=== PATIENT | female | born 1970 | race Two or more races ===

== ENCOUNTER 2019-04-19 06:50 | Outpatient (CLI) | payer OTHER | END 2019-04-19 06:57 | disposition home or self-care (01) | LOC: LAB 06:50 | DX: K21.9 Gastro-esophageal reflux disease without esophagitis (principal); Z00.00 Encounter for general adult medical examination without abnormal findings; Z13.6 Encounter for screening for cardiovascular disorders; L84 Corns and callosities; M79.675 Pain in left toe(s) ==

== ENCOUNTER 2019-04-19 07:33 | Outpatient (CLI) | payer OTHER | END 2019-04-19 07:48 | disposition home or self-care (01) | LOC: RAD 07:33 | DX: M20.42 Other hammer toe(s) (acquired), left foot (principal) ==

== ENCOUNTER 2019-05-10 14:31 | Outpatient (CLI) | payer OTHER | END 2019-05-10 14:35 | disposition home or self-care (01) | LOC: EKG 14:31 | DX: Z13.6 Encounter for screening for cardiovascular disorders (principal) ==

== ENCOUNTER → 2019-05-11 | Outpatient (CLI) | payer OTHER | END | disposition home or self-care (01) | LOC: MAMO-SONO 07:33 | DX: Z12.31 Encounter for screening mammogram for malignant neoplasm of breast (principal); Z87.898 Personal history of other specified conditions; Z12.39 Encounter for other screening for malignant neoplasm of breast ==

== ENCOUNTER → 2019-05-18 | Outpatient (CLI) | payer OTHER | END | disposition home or self-care (01) | LOC: SONOGRAMA 07:19 | DX: E04.1 Nontoxic single thyroid nodule (principal); E04.8 Other specified nontoxic goiter; R13.19 Other dysphagia ==

== ENCOUNTER 2019-07-13 08:33 | Outpatient (CLI) | payer OTHER | END 2019-07-13 08:38 | disposition home or self-care (01) | LOC: SONOGRAMA 08:33 | DX: E04.1 Nontoxic single thyroid nodule (principal) ==

== ENCOUNTER 2019-08-18 08:42 | Outpatient (CLI) | payer OTHER | END 2019-08-18 08:50 | disposition home or self-care (01) | LOC: LAB 08:42 | DX: J11.1 Influenza due to unidentified influenza virus with other respiratory manifestations (principal); J06.9 Acute upper respiratory infection, unspecified ==

== ENCOUNTER 2019-09-12 13:11 | Outpatient (CLI) | payer OTHER | END 2019-09-12 13:18 | disposition home or self-care (01) | LOC: RAD 13:11 | DX: T15.12XA Foreign body in conjunctival sac, left eye, initial encounter (principal) ==

== ENCOUNTER 2019-12-27 06:44 | Outpatient (CLI) | payer OTHER | END 2019-12-27 06:50 | disposition home or self-care (01) | LOC: LAB 06:44 | PROVIDERS: ATTEND General Practice | DX: R10.13 Epigastric pain (principal) ==

== ENCOUNTER → 2019-12-29 | Outpatient (CLI) | payer OTHER | END | disposition home or self-care (01) | LOC: MAMO-SONO 06:42 | PROVIDERS: ATTEND General Practice | DX: R10.13 Epigastric pain (principal) ==

== ENCOUNTER → 2020-01-02 | Outpatient (CLI) | payer OTHER | END | disposition home or self-care (01) | LOC: TOM 06:46 | PROVIDERS: ATTEND General Practice | DX: R93.2 Abnormal findings on diagnostic imaging of liver and biliary tract (principal) ==

== ENCOUNTER 2020-06-17 05:53 | Day surgery (SDC) | payer OTHER | END 2020-06-17 11:00 | disposition home or self-care (01) | LOC: AMB-ENDOS 05:53 | PROVIDERS: ATTEND Surgery | DX: K62.89 Other specified diseases of anus and rectum (principal); Z12.11 Encounter for screening for malignant neoplasm of colon; Z20.828 Contact with and (suspected) exposure to other viral communicable diseases ==

== ENCOUNTER 2020-07-16 11:11 | Outpatient (CLI) | payer OTHER | END 2020-07-16 14:57 | disposition home or self-care (01) | LOC: LAB 11:11 | PROVIDERS: ATTEND Internal Medicine Gastroenterology | DX: R10.13 Epigastric pain (principal); Z87.11 Personal history of peptic ulcer disease; Z12.11 Encounter for screening for malignant neoplasm of colon; D13.4 Benign neoplasm of liver ==

== ENCOUNTER 2020-07-16 11:46 | Outpatient (CLI) | payer OTHER | END 2020-07-16 11:52 | disposition home or self-care (01) | LOC: SONOGRAMA 11:46 | PROVIDERS: ATTEND Obstetrics & Gynecology Gynecology | DX: D18.09 Hemangioma of other sites (principal); K76.89 Other specified diseases of liver; R93.3 Abnormal findings on diagnostic imaging of other parts of digestive tract; R10.13 Epigastric pain ==

== ENCOUNTER 2021-03-20 14:35 | Outpatient (CLI) | payer OTHER | END 2021-03-20 14:41 | disposition home or self-care (01) | LOC: MAMO-SONO 14:35 | PROVIDERS: ATTEND Radiology Diagnostic Radiology | DX: N64.89 Other specified disorders of breast (principal); N63.0 Unspecified lump in unspecified breast ==

== ENCOUNTER 2021-07-07 05:39 | Day surgery (SDC) | payer OTHER ==
[2021-07-07] MEDS ORDERED: ULTRAM50 MG PO (11:57)
[2021-07-07] MEDS ORDERED: PROTONIX40 MG PO (11:58)
== END 2021-07-07 13:00 | disposition home or self-care (01) ==
LOC: CIR.AMB 05:39
PROVIDERS: ATTEND Surgery
DX: K80.10 Calculus of gallbladder with chronic cholecystitis without obstruction (principal)

== ENCOUNTER 2022-08-03 14:05 | Outpatient (CLI) | payer OTHER ==
[~2022-08-03 14:05] MED LIST: PROTONIX40 MG PO; ULTRAM50 MG PO
== END 2022-08-03 14:12 | disposition home or self-care (01) ==
LOC: LAB 14:05
DX: Z20.822 Contact with and (suspected) exposure to COVID-19 (principal); R50.9 Fever, unspecified; J11.1 Influenza due to unidentified influenza virus with other respiratory manifestations

== ENCOUNTER 2022-08-26 07:02 | Outpatient (CLI) | payer OTHER | END 2022-08-26 07:10 | disposition home or self-care (01) | LOC: RAD 07:02 | PROVIDERS: ATTEND Internal Medicine | DX: M79.652 Pain in left thigh (principal); M25.552 Pain in left hip; S49.92XA Unspecified injury of left shoulder and upper arm, initial encounter ==

== ENCOUNTER 2022-10-05 06:23 | Outpatient (CLI) | payer OTHER | END 2022-10-05 06:24 | disposition home or self-care (01) | LOC: LAB 06:23 | PROVIDERS: ATTEND Obstetrics & Gynecology | DX: D64.9 Anemia, unspecified (principal); E03.8 Other specified hypothyroidism; N95.1 Menopausal and female climacteric states; I10 Essential (primary) hypertension; C51.9 Malignant neoplasm of vulva, unspecified; N30.00 Acute cystitis without hematuria; E83.51 Hypocalcemia; A64 Unspecified sexually transmitted disease; N39.0 Urinary tract infection, site not specified; R97.8 Other abnormal tumor markers; R79.89 Other specified abnormal findings of blood chemistry; E55.9 Vitamin D deficiency, unspecified; A60.9 Anogenital herpesviral infection, unspecified; Z12.11 Encounter for screening for malignant neoplasm of colon ==

== ENCOUNTER 2022-10-06 13:06 | Outpatient (CLI) | payer OTHER | END 2022-10-06 13:13 | disposition home or self-care (01) | LOC: MAMO-SONO 13:06 | PROVIDERS: ATTEND Obstetrics & Gynecology | DX: Z12.31 Encounter for screening mammogram for malignant neoplasm of breast (principal); N60.11 Diffuse cystic mastopathy of right breast; N60.12 Diffuse cystic mastopathy of left breast; E04.8 Other specified nontoxic goiter; E03.9 Hypothyroidism, unspecified ==

== ENCOUNTER 2023-01-18 07:27 | Outpatient (CLI) | payer OTHER | END 2023-01-18 07:34 | disposition home or self-care (01) | LOC: LAB 07:27 | PROVIDERS: ATTEND Family Medicine | DX: E11.9 Type 2 diabetes mellitus without complications (principal); N18.1 Chronic kidney disease, stage 1; N39.0 Urinary tract infection, site not specified; E55.9 Vitamin D deficiency, unspecified; Z12.11 Encounter for screening for malignant neoplasm of colon; E03.9 Hypothyroidism, unspecified; D64.9 Anemia, unspecified; N18.9 Chronic kidney disease, unspecified; E78.5 Hyperlipidemia, unspecified ==

== ENCOUNTER → 2023-02-01 07:10 | Outpatient (CLI) | payer OTHER | END | disposition home or self-care (01) | LOC: LAB 07:10 | DX: U07.1 COVID-19 (principal) ==

== ENCOUNTER 2023-02-12 10:00 | Outpatient (CLI) | payer OTHER | END 2023-02-12 10:10 | disposition home or self-care (01) | LOC: PPH VACUNA 10:00 | PROVIDERS: ATTEND Emergency Medicine Pediatric Emergency Medicine | DX: Z23 Encounter for immunization (principal) | CPT/HCPCS: 90686; G0008 ==

== ENCOUNTER → 2023-07-22 07:31 | Outpatient (CLI) | payer OTHER ==
[2023-07-22 08:10] LABS: HEMATOCRIT 34.2 % (36.0-45.00); HEMOGLOBIN 11.7 g/dL (12.0-15.00); MEAN CELL VOLUME 87.1 fL (80.00-100.00); MEAN CORPUSCULAR HEMOGLOBIN 29.8 pg (27.00-32.0); MEAN CORPUSCULAR HGB CONC 34.2 g/dl (32.0-36.0); PLATELET COUNT 314 K/uL (150-450); RED BLOOD COUNT 3.93 M/uL (4.00-6.00)
[2023-07-22 08:51] LABS: ALBUMIN 3.8 gm/dL (3.4-5.0); BILIRUBIN TOTAL 0.55 mg/dL (0.3-1.2); CALCIUM 8.8 mg/dL (8.5-10.1); CHOL HDL RATIO 2.3 (0-5.0); CREATININE SERUM 0.76 mg/dL (0.55-1.02); GFR 79.61; GLOBULINA 3.6 G/DL (2.4-3.5); POTASSIUM 3.75 mEq/L (3.5-5.1); T4 FREE 0.8 NG/ML (0.76-1.46); TOTAL PROTEIN 7.4 gm/dL (6.4-8.2); TSH 1.59 uIU/mL (0.358-3.74)
[2023-07-22 09:17] LABS: URINE APPEARANCE Clear; URINE BILIRRUBIN Negative (NEGATIVE); URINE BLOOD Negative; URINE COLOR Yellow; URINE GLUCOSE Negative (NEGATIVE); URINE LEUKOCYTE Small; URINE NITRATE Negative; URINE PROTEIN Negative (NEGATIVE)
[2023-07-22 09:22] LABS: URINE BACTERIA 521.5 uL (0.0-1933); URINE EPITHELIAL CELLS 10.9 uL (0.0-38.8); URINE WBC 3.7 uL (0.0-23.2)
[2023-07-22 09:44] LABS: URINE RBC 1.7 uL (0.0-20.8)
[2023-07-23 06:10] LABS: PROLACTIN 7.7 ng/mL (3.6-25.2)
== END | disposition home or self-care (01) ==
LOC: LAB 07:31
PROVIDERS: ATTEND Obstetrics & Gynecology
DX: Z12.11 Encounter for screening for malignant neoplasm of colon (principal); D64.9 Anemia, unspecified; E03.8 Other specified hypothyroidism; N95.1 Menopausal and female climacteric states; I10 Essential (primary) hypertension; C51.9 Malignant neoplasm of vulva, unspecified; N30.00 Acute cystitis without hematuria; E83.51 Hypocalcemia; A64 Unspecified sexually transmitted disease; N39.0 Urinary tract infection, site not specified; R79.89 Other specified abnormal findings of blood chemistry; E55.9 Vitamin D deficiency, unspecified; A60.9 Anogenital herpesviral infection, unspecified

== ENCOUNTER 2023-07-22 08:08 | Outpatient (CLI) | payer OTHER | END 2023-07-22 08:25 | disposition home or self-care (01) | LOC: SONOGRAMA 08:08 | PROVIDERS: ATTEND Obstetrics & Gynecology | DX: R10.2 Pelvic and perineal pain (principal) ==

== ENCOUNTER 2023-11-16 09:06 | Outpatient (CLI) | payer OTHER | END 2023-11-16 09:10 | disposition home or self-care (01) | LOC: LAB 09:06 | PROVIDERS: ATTEND Preventive Medicine Occupational Medicine | DX: J11.1 Influenza due to unidentified influenza virus with other respiratory manifestations (principal); Z20.828 Contact with and (suspected) exposure to other viral communicable diseases ==

== ENCOUNTER 2023-12-06 06:32 | Outpatient (CLI) | payer OTHER ==
[2023-12-06 07:22] LABS: PH,URINE 5.5 (5.0-8.0); URINE APPEARANCE Cloudy; URINE BILIRRUBIN Negative (NEGATIVE); URINE BLOOD Negative; URINE COLOR Yellow; URINE GLUCOSE Negative (NEGATIVE); URINE LEUKOCYTE Moderate; URINE NITRATE Negative; URINE PROTEIN Negative (NEGATIVE); URINE UROBILINOGEN 0.2 E.U./dl
[2023-12-06 07:23] LABS: URINE BACTERIA 2819.8 uL (0.0-1933); URINE EPITHELIAL CELLS 59.3 uL (0.0-38.8); URINE RBC 10.3 uL (0.0-20.8); URINE WBC 201.1 uL (0.0-23.2)
[2023-12-06 07:33] LABS: HEMATOCRIT 33.6 % (36.0-45.00); HEMOGLOBIN 11.7 g/dL (12.0-15.00); MEAN CELL VOLUME 85.8 fL (80.00-100.00); MEAN CORPUSCULAR HEMOGLOBIN 29.8 pg (27.00-32.0); MEAN CORPUSCULAR HGB CONC 34.7 g/dl (32.0-36.0); PLATELET COUNT 282 K/uL (150-450); RED BLOOD COUNT 3.91 M/uL (4.00-6.00); RED CELL DISTRIBUTION WIDTH 15.4 % (11.5-14.5)
[2023-12-06 08:23] LABS: ALBUMIN 3.9 gm/dL (3.4-5.0); BILIRUBIN TOTAL 0.58 mg/dL (0.3-1.2); CALCIUM 9.1 mg/dL (8.5-10.1); CHOL HDL RATIO 2.3 (0-5.0); CREATININE SERUM 0.68 mg/dL (0.55-1.02); GFR 90.51; GLOBULINA 3.8 G/DL (2.4-3.5); POTASSIUM 4.01 mEq/L (3.5-5.1); TOTAL PROTEIN 7.7 gm/dL (6.4-8.2); TSH 2.3 uIU/mL (0.358-3.74)
[2023-12-06 11:47] LABS: VITAMIN D3 25 HYDROXY 26.84 ng/ml (30-120)
[2023-12-07 09:08] LABS: INSULIN LEVELS 11.7 uIU/mL (2.6-24.9)
[2023-12-09 17:11] LABS: CALCITONIN < 2.0 pg/mL (0.0-5.0)
== END 2023-12-06 06:33 | disposition home or self-care (01) ==
LOC: LAB 06:32
PROVIDERS: ATTEND Internal Medicine
DX: E11.9 Type 2 diabetes mellitus without complications (principal); E34.9 Endocrine disorder, unspecified; E07.9 Disorder of thyroid, unspecified; E55.9 Vitamin D deficiency, unspecified; E53.9 Vitamin B deficiency, unspecified; E78.5 Hyperlipidemia, unspecified; N30.01 Acute cystitis with hematuria; I10 Essential (primary) hypertension

== ENCOUNTER 2024-03-08 10:03 | Outpatient (CLI) | payer OTHER ==
[2024-03-08 11:10] LABS: HEMATOCRIT 33.6 % (36.0-45.00); MEAN CELL VOLUME 86.5 fL (80.00-100.00); MEAN CORPUSCULAR HGB CONC 35.8 g/dl (32.0-36.0); PLATELET COUNT 270 K/uL (150-450); RED BLOOD COUNT 3.89 M/uL (4.00-6.00); RED CELL DISTRIBUTION WIDTH 15.3 % (11.5-14.5)
== END 2024-03-08 15:39 | disposition home or self-care (01) ==
LOC: EDBD 10:03 → LAB 10:03
PROVIDERS: ATTEND Internal Medicine
DX: J11.1 Influenza due to unidentified influenza virus with other respiratory manifestations (principal); R06.9 Unspecified abnormalities of breathing

== ENCOUNTER 2024-03-15 11:53 | Outpatient (CLI) | payer OTHER | END 2024-03-15 11:59 | disposition home or self-care (01) | LOC: MAMO-SONO 11:53 | PROVIDERS: ATTEND Surgery | DX: N60.11 Diffuse cystic mastopathy of right breast (principal); N60.12 Diffuse cystic mastopathy of left breast ==

== ENCOUNTER 2024-04-14 13:50 | Outpatient (CLI) | payer OTHER | END 2024-04-14 14:00 | disposition home or self-care (01) | LOC: PPH VACUNA 13:50 | PROVIDERS: ATTEND Emergency Medicine Pediatric Emergency Medicine | DX: Z23 Encounter for immunization (principal) ==

== ENCOUNTER 2024-05-10 06:34 | Outpatient (CLI) | payer OTHER ==
[2024-05-10 07:46] LABS: HEMATOCRIT 34.2 % (36.0-45.00); HEMOGLOBIN 11.8 g/dL (12.0-15.00); MEAN CELL VOLUME 86.2 fL (80.00-100.00); MEAN CORPUSCULAR HEMOGLOBIN 29.9 pg (27.00-32.0); MEAN CORPUSCULAR HGB CONC 34.7 g/dl (32.0-36.0); PLATELET COUNT 290 K/uL (150-450); RED BLOOD COUNT 3.96 M/uL (4.00-6.00); RED CELL DISTRIBUTION WIDTH 14.8 % (11.5-14.5)
[2024-05-10 07:46] LABS: PH,URINE 5.5 (5.0-8.0); URINE APPEARANCE Clear; URINE BILIRRUBIN Negative (NEGATIVE); URINE BLOOD Negative; URINE COLOR Yellow; URINE GLUCOSE Negative (NEGATIVE); URINE KETONE Negative (NEGATIVE); URINE LEUKOCYTE Moderate; URINE NITRATE Negative; URINE PROTEIN Negative (NEGATIVE); URINE UROBILINOGEN 0.2 E.U./dl
[2024-05-10 07:47] LABS: URINE BACTERIA 682.9 uL (0.0-1933); URINE EPITHELIAL CELLS 41.7 uL (0.0-38.8); URINE RBC 3.8 uL (0.0-20.8); URINE WBC 99.2 uL (0.0-23.2)
[2024-05-10 07:51] LABS: ERYTHROCYTE SEDIMENTATION RATE 9 mm/hr
[2024-05-10 08:35] LABS: URINE CAST 0.14 uL (0.0-1.40)
[2024-05-10 08:57] LABS: ALBUMIN 3.9 gm/dL (3.4-5.0); BILIRUBIN TOTAL 0.64 mg/dL (0.3-1.2); CALCIUM 8.7 mg/dL (8.5-10.1); CHOL HDL RATIO 2.1 (0-5.0); CREATININE SERUM 0.8 mg/dL (0.55-1.02); GFR 74.75; GLOBULINA 3.5 G/DL (2.4-3.5); POTASSIUM 4.44 mEq/L (3.5-5.1); TOTAL PROTEIN 7.4 gm/dL (6.4-8.2); TSH 1.87 uIU/mL (0.358-3.74)
== END 2024-05-10 06:42 | disposition home or self-care (01) ==
LOC: LAB 06:34
PROVIDERS: ATTEND Internal Medicine
DX: E55.9 Vitamin D deficiency, unspecified (principal); G47.33 Obstructive sleep apnea (adult) (pediatric); Z00.00 Encounter for general adult medical examination without abnormal findings; Z13.1 Encounter for screening for diabetes mellitus; Z13.220 Encounter for screening for lipoid disorders; Z13.29 Encounter for screening for other suspected endocrine disorder

== ENCOUNTER 2024-06-16 07:30 | Outpatient (CLI) | payer OTHER | END 2024-06-16 07:48 | disposition home or self-care (01) | LOC: TOM 07:30 | PROVIDERS: ATTEND Internal Medicine | DX: R10.0 Acute abdomen (principal) ==

== ENCOUNTER 2024-08-07 06:32 | Outpatient (CLI) | payer OTHER ==
[2024-08-07 07:53] LABS: HEMATOCRIT 33.9 % (36.0-45.00); MEAN CELL VOLUME 84.8 fL (80.00-100.00); MEAN CORPUSCULAR HEMOGLOBIN 29.9 pg (27.00-32.0); MEAN CORPUSCULAR HGB CONC 35.3 g/dl (32.0-36.0); PLATELET COUNT 281 K/uL (150-450)
[2024-08-07 08:37] LABS: CHOL HDL RATIO 2.1 (0-5.0)
== END 2024-08-07 06:35 | disposition home or self-care (01) ==
LOC: LAB 06:32
PROVIDERS: ATTEND Internal Medicine
DX: K29.70 Gastritis, unspecified, without bleeding (principal); C73 Malignant neoplasm of thyroid gland; E78.9 Disorder of lipoprotein metabolism, unspecified

== ENCOUNTER 2024-08-08 08:11 | Outpatient (CLI) | payer OTHER | END 2024-08-08 08:14 | disposition home or self-care (01) | LOC: NUCLEAR 08:11 | PROVIDERS: ATTEND Internal Medicine | DX: R07.9 Chest pain, unspecified (principal); R06.00 Dyspnea, unspecified ==

== ENCOUNTER 2024-08-30 08:03 | Outpatient (CLI) | payer OTHER | END 2024-08-30 08:06 | disposition home or self-care (01) | LOC: SONOGRAMA 08:03 | PROVIDERS: ATTEND Obstetrics & Gynecology | DX: E04.1 Nontoxic single thyroid nodule (principal) ==

== ENCOUNTER 2024-09-05 06:55 | Outpatient (CLI) | payer OTHER ==
[2024-09-05 08:09] LABS: PH,URINE 5.5 (5.0-8.0); URINE APPEARANCE Clear; URINE BILIRRUBIN Negative (NEGATIVE); URINE BLOOD Negative; URINE COLOR Yellow; URINE GLUCOSE Negative (NEGATIVE); URINE KETONE Negative (NEGATIVE); URINE LEUKOCYTE Large; URINE NITRATE Negative; URINE PROTEIN Negative (NEGATIVE); URINE UROBILINOGEN 0.2 E.U./dl
[2024-09-05 08:13] LABS: URINE BACTERIA 1510.2 uL (0.0-1933); URINE EPITHELIAL CELLS 66.1 uL (0.0-38.8); URINE RBC 4.2 uL (0.0-20.8); URINE WBC 248.8 uL (0.0-23.2)
[2024-09-05 08:22] LABS: HEMATOCRIT 33.4 % (36.0-45.00); HEMOGLOBIN 11.5 g/dL (12.0-15.00); MEAN CELL VOLUME 86.7 fL (80.00-100.00); MEAN CORPUSCULAR HEMOGLOBIN 29.7 pg (27.00-32.0); MEAN CORPUSCULAR HGB CONC 34.3 g/dl (32.0-36.0); PLATELET COUNT 284 K/uL (150-450); RED BLOOD COUNT 3.86 M/uL (4.00-6.00); RED CELL DISTRIBUTION WIDTH 15.4 % (11.5-14.5)
[2024-09-05 09:06] LABS: ALBUMIN 3.8 gm/dL (3.4-5.0); BILIRUBIN TOTAL 0.59 mg/dL (0.3-1.2); CALCIUM 8.9 mg/dL (8.5-10.1); CHOL HDL RATIO 2.4 (0-5.0); CREATININE SERUM 0.66 mg/dL (0.55-1.02); GFR 93.33; GLOBULINA 3.5 G/DL (2.4-3.5); POTASSIUM 3.93 mEq/L (3.5-5.1); T4 TOTAL 7.63 UG/DL (4.8-13.9); TOTAL PROTEIN 7.3 gm/dL (6.4-8.2); TSH 1.94 uIU/mL (0.358-3.74)
[2024-09-05 13:12] LABS: T3 TOTAL 1.4 ng/ml (0.846-2.02); VITAMIN D3 25 HYDROXY 46.52 ng/ml (30-120)
[2024-09-06 09:06] LABS: INSULIN LEVELS 9.6 uIU/mL (2.6-24.9)
[2024-09-10 06:36] LABS: CALCITONIN < 2.0 pg/mL (0.0-5.0)
== END 2024-09-05 06:59 | disposition home or self-care (01) ==
LOC: LAB 06:55
PROVIDERS: ATTEND Internal Medicine
DX: E11.9 Type 2 diabetes mellitus without complications (principal); E34.9 Endocrine disorder, unspecified; E07.9 Disorder of thyroid, unspecified; E55.9 Vitamin D deficiency, unspecified; E53.9 Vitamin B deficiency, unspecified; E78.5 Hyperlipidemia, unspecified; N30.00 Acute cystitis without hematuria; I10 Essential (primary) hypertension

== ENCOUNTER 2024-10-03 07:11 | Outpatient (CLI) | payer OTHER ==
[2024-10-03 08:13] LABS: BASO % 0.8 % (0.1-1.2); EOS # 0.08 (0.04-0.54); EOS % 2.2 % (0.7-7.0); HEMOGLOBIN 11.7 g/dL (11.2-15.7); LYMPH # 1.77 (1.18-3.74); LYMPH % 49.6 % (19.3-53.1); MEAN CORPUSCULAR HEMOGLOBIN 29.2 pg (25.6-32.2); MONO # 0.44 (0.24-0.82); NEUT # 1.24 (1.56-6.13); NEUT % 34.8 % (34.0-71.1); PLATELET COUNT 271 K/uL (163-369); RED BLOOD COUNT 4.01 M/uL (3.93-5.22)
[2024-10-03 08:18] LABS: MONO % 12.3 % (4.7-12.5)
[2024-10-03 08:25] LABS: COVID-19 AG NEGATIVE (NEGATIVE)
[2024-10-03 08:27] LABS: INFLUENZA A AG NEGATIVE (NEGATIVE)
[2024-10-03 08:58] LABS: MYCOPLASMA PNEUMONIAE IGM NON REACTIVE (NO REACTIVE)
== END 2024-10-03 07:22 | disposition home or self-care (01) ==
LOC: LAB 07:11
DX: J11.1 Influenza due to unidentified influenza virus with other respiratory manifestations (principal); U07.1 COVID-19; R06.9 Unspecified abnormalities of breathing

== ENCOUNTER 2025-03-22 09:56 | Outpatient (CLI) | payer OTHER | END 2025-03-22 10:03 | disposition home or self-care (01) | LOC: MAMO-SONO 09:56 | PROVIDERS: ATTEND Surgery | DX: N60.11 Diffuse cystic mastopathy of right breast (principal); N60.12 Diffuse cystic mastopathy of left breast ==

== ENCOUNTER 2025-04-03 11:50 | Outpatient (CLI) | payer OTHER | END 2025-04-03 12:00 | disposition home or self-care (01) | LOC: PPH VACUNA 11:50 | PROVIDERS: ATTEND Emergency Medicine Pediatric Emergency Medicine | DX: Z23 Encounter for immunization (principal) ==

== ENCOUNTER 2025-04-09 06:54 | Outpatient (CLI) | payer OTHER ==
[2025-04-09 08:32] LABS: BASO % 0.6 % (0.1-1.2); EOS # 0.10 (0.04-0.54); EOS % 2.1 % (0.7-7.0); LYMPH # 1.94 (1.18-3.74); LYMPH % 41.0 % (19.3-53.1); MEAN PLATELET VOLUME 9.50 fl (9.4-12.4); MONO # 0.42 (0.24-0.82); MONO % 8.9 % (4.7-12.5); NEUT # 2.23 (1.56-6.13); NEUT % 47.2 % (34.0-71.1); RED CELL DISTRIBUTION WIDTH 13.7 % (11.6-14.4)
[2025-04-09 08:42] LABS: URINE APPEARANCE Clear; URINE BILIRRUBIN Negative (NEGATIVE); URINE BLOOD Negative; URINE COLOR Yellow; URINE GLUCOSE Negative (NEGATIVE); URINE KETONE Negative (NEGATIVE); URINE LEUKOCYTE Small; URINE NITRATE Negative; URINE PROTEIN Negative (NEGATIVE); URINE UROBILINOGEN 0.2 E.U./dl
[2025-04-09 08:47] LABS: URINE BACTERIA 268.8 uL (0.0-1933); URINE EPITHELIAL CELLS 5.2 uL (0.0-38.8); URINE RBC 2.3 uL (0.0-20.8); URINE WBC 13.2 uL (0.0-23.2)
[2025-04-09 09:11] LABS: URINE CAST 0.00 uL (0.0-1.40)
[2025-04-09 09:29] LABS: ALT/SGPT 19.0 U/L (12-78); AST/SGOT 17.0 U/L (15-37); BILIRUBIN TOTAL 0.65 mg/dL (0.3-1.2); BUN CREA RATIO 24.0 (7.0-25.0); CHOL HDL RATIO 2.1 (0-5.0); CREATININE SERUM 0.71 mg/dL (0.55-1.02); GFR 85.78; GLOBULINA 3.7 G/DL (2.4-3.5); GLUCOSE FASTING 79.0 mg/dL (65-100); HDL 65.0 mg/dl (40-60); LDL 63.0 mg/dl (0-130); OSMOLALITY SERUM 282.0 MOSM/KG (275-295); TSH 2.18 uIU/mL (0.358-3.74); VLDL 10.0 (0-39)
== END 2025-04-09 07:01 | disposition home or self-care (01) ==
LOC: LAB 06:54
PROVIDERS: ATTEND Internal Medicine
DX: N39.0 Urinary tract infection, site not specified (principal); Z13.29 Encounter for screening for other suspected endocrine disorder; Z13.220 Encounter for screening for lipoid disorders; Z13.1 Encounter for screening for diabetes mellitus

== ENCOUNTER 2025-05-03 06:40 | Outpatient (CLI) | payer OTHER ==
[2025-05-03 07:48] LABS: URINE APPEARANCE Clear; URINE BILIRRUBIN Negative (NEGATIVE); URINE BLOOD Negative; URINE COLOR Yellow; URINE GLUCOSE Negative (NEGATIVE); URINE KETONE Negative (NEGATIVE); URINE LEUKOCYTE Large; URINE NITRATE Negative; URINE PROTEIN Negative (NEGATIVE); URINE UROBILINOGEN 0.2 E.U./dl
[2025-05-03 07:51] LABS: URINE EPITHELIAL CELLS 82.7 uL (0.0-38.8); URINE RBC 2.1 uL (0.0-20.8); URINE WBC 223.4 uL (0.0-23.2)
[2025-05-03 08:25] LABS: URINE CAST 0.14 uL (0.0-1.40)
== END 2025-05-03 06:45 | disposition home or self-care (01) ==
LOC: LAB 06:40
PROVIDERS: ATTEND Obstetrics & Gynecology
DX: N30.00 Acute cystitis without hematuria (principal)